=== PATIENT | female | born 1940 | race Caucasian/White ===

== ENCOUNTER → 2020-01-11 12:03 | Outpatient (BNVA) | payer MEDICARE, SELFPAY | PROVIDERS: PCP Internal Medicine; Referring Provider Internal Medicine; Visit Provider Surgery | DX: Z43.1 Encounter for attention to gastrostomy (principal) | CPT/HCPCS: 43762; 99212 ==

== ENCOUNTER 2020-05-05 12:20 | Emergency (ER) | payer MEDICARE, SELFPAY ==
--- NOTE | ~2020-05-05 | XR_ITS ---
EXAMINATION: XR INTRAVENOUS PYELOGRAM CLINICAL INFORMATION: Assess G-tube placement. COMPARISON: None TECHNIQUE: A single AP view of the abdomen was obtained following administration of oral contrast through the gastrostomy tube. FINDINGS: Oral contrast is seen within the gastric lumen without abnormality. No overt evidence for leak is seen. There is a nonobstructive bowel gas pattern. Mild gas and stool are seen within the visualized colon. Mild to moderate multilevel degenerative changes are seen in the thoracolumbar spine. XR/XR IVP w KUB IMPRESSION: 1. Oral contrast within the gastric lumen without overt abnormality.
[2020-05-05 12:27] VITALS: BP 140/75; PULSE 70; RESP 16; TEMP 36.2
--- NOTE | 2020-05-05 12:43 | ED.GENADULT ---
HPI - General Adult General Chief complaint: General Medical Stated complaint: feeding tube fell out Time Seen by Provider: 05/05/20 12:35 Source: family Mode of arrival: wheelchair Limitations: altered mental status History of Present Illness HPI narrative: Patient is brought by her daughter. Earlier today, the G tube accidentally was pulled out. Patient has no other complaints. Patient's daughter at bedside. They brought the old G-tube in, patient is a 16 [place]ic. Patient is unable to give any history Related Data Allergies Allergy/AdvReac Type Severity Reaction Status Date / Time No Known Allergies Allergy Verified 05/05/20 12:43 Review of Systems Review of Systems: Yes Unobtainable due to mental condition [facility], [facility] Past Medical History Medical History (Updated 05/05/20 @ 13:26 by Deann De Leon MD) History of gastrostomy tube placement Social History Social History Alcohol intake: never Smoking Status: Never smoker Use of substances other than those prescribed or required for medical reasons: No Advance Directives: No Advance Directives Information Provided: No Physical Exam Vital Signs: Vital Signs: Last Vital Signs Temp 97.2 F 05/05/20 12:27 Pulse 70 05/05/20 12:27 Resp 16 05/05/20 12:27 BP 140/75 H 05/05/20 12:27 Appearance: Alert. Does not speak, wheelchair-bound Eyes: Pupils equal, round and reactive to light. ENT: Pharynx normal. Neck: Normal inspection. Neck supple. No lymph nodes noted. No crepitus CVS: Normal heart rate and rhythm. Pulses normal. Normal S1 and S2 Respiratory: No respiratory distress. Breath sounds normal. No Wheezing. No rales Abdomen: Soft and nontender. No rigidity. No distention. Skin: Skin warm and dry. Normal skin color. Normal skin turgor. Extremities: No lower extremity edema. No lower extremity edema. No Lacerations. No Rash Neuro: Oriented X 3. No motor deficit. No sensory deficit. Moving all extermities. No slurred speech. Course Course Course Narrative: We did not have a 16 Icelandic G-tube. I attempted to insert an 18 Icelandic, however it was too big. We were able to insert a 14 [place]ic. If needed, the 14 Icelandic can be switched to a 16 Icelandic (which is the patient's normal G-tube size) by Gastroenterology or surgery. Medical Decision Making Imaging Data KUB: Radiologist's impression: INDINGS: Oral contrast is seen within the gastric lumen without abnormality. No overt evidence for leak is seen. There is a nonobstructive bowel gas pattern. Mild gas and stool are seen within the visualized colon. Mild to moderate multilevel degenerative changes are seen in the thoracolumbar spine. XR/XR IVP w KUB IMPRESSION: 1. Oral contrast within the gastric lumen without overt abnormality. Discharge Plan Discharge Clinical Impression: Gastrojejunostomy tube dislodgement Patient Disposition: Home, Self-Care Additional Instructions: Please follow-up with her primary care physician, Gastroenterology for surgeon if the 14 [place]ic tube does not work. Patient may need to have it replaced to a 16 [place]ic which is her normal G-tube size. Please follow-up with your primary care physician tomorrow. If you have any worsening or new symptoms, please return to the emergency room or call 911
--- NOTE | 2020-05-05 13:26 | PC.NURSE ---
pt was brought to ED by her daughter after her feeding tube fell out this morning. pt is awake but unable to speak or make needs known. eyes are open but pt does not always make eye contact with nurse during assessment. pt is not able to move independently and is in a wheelchair. lung sounds clear bilaterally in all ram, respirations are even and non-labored. heart rate within normal limits and heart sounds normal. bowel sounds active x4. MD at bedside to replace feeding tube. 14fr feeding tube inserted and secured with Telfa dressing and tape on all four sides.
[2020-05-05 14:58] VITALS: BP 133/87; PULSE 87; RESP 16; O2SAT 96
== END 2020-05-05 14:58 | disposition home or self-care (01) ==
PROVIDERS: Emergency Provider Emergency Medicine
DX: Z43.1 Encounter for attention to gastrostomy (principal)
CPT/HCPCS: 43762; 74400; 99284

== ENCOUNTER → 2020-11-14 08:27 | Outpatient (BNVA) | payer MEDICARE, SELFPAY | PROVIDERS: Visit Provider Surgery | DX: Z93.1 Gastrostomy status (principal) | CPT/HCPCS: 43762; 99212 ==